=== PATIENT | female | born 1950 | race Caucasian/White ===

== ENCOUNTER 2017-04-12 09:47 | Emergency (ER) | payer OTHER ==
[2017-04-12 11:55] LABS: HEMOGLOBIN 12.1 gm/dl (12.3-15.3); RED BLOOD COUNT 4.28 M/UL (4.00-5.10); WHITE BLOOD COUNT 4.9 K/UL (4.5-11.0)
[2017-04-12 12:07] LABS: BUN/CREATININE RATIO 7 (0-10)
[2017-04-13] MEDS ORDERED: PREDNISONE 20 M20 MG PO (22:08)
[2017-04-13] MEDS ORDERED: DOXYCYCLINE HY100 MG PO (22:11)
[2017-04-13] MEDS ORDERED: LISINOPRIL10 MG PO (22:12)
[2017-04-13] MEDS ORDERED: LOPRESSOR 25 MG25 MG PO (22:13)
[2017-04-13] MEDS ORDERED: SINGULAIR10 MG PO (22:14)
[2017-04-13] MEDS ORDERED: ZOCOR 40 MG TAB40 MG PO (22:15)
[2017-04-13] MEDS ORDERED: ALPRAZOLAM0.5 MG PO ×2 (22:16→22:18)
[2017-04-13] MEDS ORDERED: TRAZODONE HCL100 MG PO (22:18)
[2017-04-13] MEDS ORDERED: OMEPRAZOLE20 MG PO (22:19)
[2017-04-13] MEDS ORDERED: PAROXETINE HCL40 MG PO (22:20)
[2017-04-13] MEDS ORDERED: ZANAFLEX4 M1 PO (22:21)
[2017-04-13] MEDS ORDERED: ROPINIROLE HCL1 MG PO (22:22)
[2017-04-13] MEDS ORDERED: ASPIR-TRIN325 MG PO (22:22)
[2017-04-13] MEDS ORDERED: SPIRIVA RESPIMAT4 GM INH (22:26)
== END 2017-04-12 15:28 | disposition home or self-care (01) ==
LOC: ER1 09:47
PROVIDERS: Specialist/Technologist Athletic Trainer
DX: J44.1 Chronic obstructive pulmonary disease with (acute) exacerbation (principal); E87.6 Hypokalemia; E87.1 Hypo-osmolality and hyponatremia; N28.1 Cyst of kidney, acquired; K57.90 Diverticulosis of intestine, part unspecified, without perforation or abscess without bleeding; F17.210 Nicotine dependence, cigarettes, uncomplicated; Z90.49 Acquired absence of other specified parts of digestive tract
CPT/HCPCS: 36415; 36600; 71250; 80053; 82803; 83605; 83690; 85025; 94640; 94664; 96361; 96374; 96375; 99284; C9113; J2930; Q9962

== ENCOUNTER 2017-04-13 16:52 | Inpatient (IN) | payer OTHER ==
[~2017-04-13] VITALS: Ht 172.7 cm; Wt 70.3 kg
[2017-04-13 17:40] LABS: HEMOGLOBIN 12.5 gm/dl (12.3-15.3); RED BLOOD COUNT 4.36 M/UL (4.00-5.10)
[2017-04-13 17:41] LABS: WHITE BLOOD COUNT 14.6 K/UL (4.5-11.0)
[2017-04-13 18:05] LABS: BUN/CREATININE RATIO 15 (0-10)
[2017-04-13] MEDS ORDERED: PREDNISONE 20 M20 MG PO (22:08)
[2017-04-13] MEDS ORDERED: DOXYCYCLINE HY100 MG PO (22:11)
[2017-04-13] MEDS ORDERED: LISINOPRIL10 MG PO (22:12)
[2017-04-13] MEDS ORDERED: LOPRESSOR 25 MG25 MG PO (22:13)
[2017-04-13] MEDS ORDERED: SINGULAIR10 MG PO (22:14)
[2017-04-13] MEDS ORDERED: ZOCOR 40 MG TAB40 MG PO (22:15)
[2017-04-13] MEDS ORDERED: ALPRAZOLAM0.5 MG PO ×2 (22:16→22:18)
[2017-04-13] MEDS ORDERED: TRAZODONE HCL100 MG PO (22:18)
[2017-04-13] MEDS ORDERED: OMEPRAZOLE20 MG PO (22:19)
[2017-04-13] MEDS ORDERED: PAROXETINE HCL40 MG PO (22:20)
[2017-04-13] MEDS ORDERED: ZANAFLEX4 M1 PO (22:21)
[2017-04-13] MEDS ORDERED: ROPINIROLE HCL1 MG PO (22:22)
[2017-04-13] MEDS ORDERED: ASPIR-TRIN325 MG PO (22:22)
[2017-04-13] MEDS ORDERED: SPIRIVA RESPIMAT4 GM INH (22:26)
[2017-04-14 01:20] LABS: HEMOGLOBIN 11.3 gm/dl (12.3-15.3); RED BLOOD COUNT 3.99 M/UL (4.00-5.10); WHITE BLOOD COUNT 11.9 K/UL (4.5-11.0)
[2017-04-14 01:40] LABS: BUN/CREATININE RATIO 16 (0-10)
[2017-04-15 03:30] LABS: HEMOGLOBIN 11.2 gm/dl (12.3-15.3); RED BLOOD COUNT 3.94 M/UL (4.00-5.10)
[2017-04-15 03:33] LABS: WHITE BLOOD COUNT 17.4 K/UL (4.5-11.0)
[2017-04-15 03:52] LABS: BUN/CREATININE RATIO 16 (0-10)
[2017-04-17 03:57] LABS: HEMOGLOBIN 11.3 gm/dl (12.3-15.3); RED BLOOD COUNT 4.06 M/UL (4.00-5.10); WHITE BLOOD COUNT 13.3 K/UL (4.5-11.0)
[2017-04-17 04:14] LABS: BUN/CREATININE RATIO 24 (0-10)
[2017-04-17] MEDS ORDERED: NORVASC 5 MG TAB5 MG PO (14:00)
[2017-04-17] MEDS ORDERED: CEFDINIR300 MG PO (14:02)
[2017-04-17] MEDS ORDERED: HUMIBID LA TAB600 MG PO (14:04)
[2017-04-17] MEDS ORDERED: HABITROL 14 MG P1 EA TD (14:08)
== END 2017-04-17 17:15 | disposition home or self-care (01) | DRG 189 ==
LOC: ER1 16:52 → ZEROF 18:45 → PROG CARE 21:30
PROVIDERS: Emergency Medicine; Internal Medicine; ADMIT Internal Medicine
PROC: 5A09357 Assistance with Respiratory Ventilation, Less than 24 Consecutive Hours, Continuous Positive Airway Pressure (ICD-10-PCS; principal; 2017-04-13)
PROC: 5A09457 Assistance with Respiratory Ventilation, 24-96 Consecutive Hours, Continuous Positive Airway Pressure (ICD-10-PCS; 2017-04-15)
DX: J96.22 Acute and chronic respiratory failure with hypercapnia (principal); J44.1 Chronic obstructive pulmonary disease with (acute) exacerbation; E87.1 Hypo-osmolality and hyponatremia; J96.21 Acute and chronic respiratory failure with hypoxia; E87.6 Hypokalemia; I10 Essential (primary) hypertension; E78.5 Hyperlipidemia, unspecified; K21.9 Gastro-esophageal reflux disease without esophagitis; M19.90 Unspecified osteoarthritis, unspecified site; G89.4 Chronic pain syndrome; M54.5 Low back pain; M25.562 Pain in left knee; M25.561 Pain in right knee; F17.210 Nicotine dependence, cigarettes, uncomplicated; F32.9 Major depressive disorder, single episode, unspecified; F41.9 Anxiety disorder, unspecified; Z79.82 Long term (current) use of aspirin; Z79.52 Long term (current) use of systemic steroids; Z79.899 Other long term (current) drug therapy; Z88.6 Allergy status to analgesic agent; Z91.041 Radiographic dye allergy status; Z91.040 Latex allergy status; Z91.013 Allergy to seafood; Z90.710 Acquired absence of both cervix and uterus; Z90.49 Acquired absence of other specified parts of digestive tract; Z98.1 Arthrodesis status; Z98.890 Other specified postprocedural states; Z82.49 Family history of ischemic heart disease and other diseases of the circulatory system
CPT/HCPCS: ECHO; 36415; 36600; 71010; 80048; 80053; 82550; 82553; 82570; 82803; 83735; 83874; 83930; 83935; 84100; 84132; 84300; 84484; 85025; 85027; 87070; 87205; 93005; 93306; 94640; 94660; 96365; 96375; 99291; J0696; J1100; J1650; J2270; J2405; J2920; J2930; J7030; J7050

== ENCOUNTER → 2017-04-23 | Outpatient (CLI) | payer OTHER ==
[~2017-04-23] MED LIST: ALPRAZOLAM0.5 MG PO; ASPIR-TRIN325 MG PO; CEFDINIR300 MG PO; DOXYCYCLINE HY100 MG PO; HABITROL 14 MG P1 EA TD; HUMIBID LA TAB600 MG PO; LISINOPRIL10 MG PO; LOPRESSOR 25 MG25 MG PO; NORVASC 5 MG TAB5 MG PO; OMEPRAZOLE20 MG PO; PAROXETINE HCL40 MG PO; PREDNISONE 20 M20 MG PO; ROPINIROLE HCL1 MG PO; SINGULAIR10 MG PO; SPIRIVA RESPIMAT4 GM INH; TRAZODONE HCL100 MG PO; ZANAFLEX4 M1 PO; ZOCOR 40 MG TAB40 MG PO
== END ==
LOC: HEART 5 12:18
DX: J44.9 Chronic obstructive pulmonary disease, unspecified (principal)
CPT/HCPCS: 94060; 94729

== ENCOUNTER → 2017-04-23 | Outpatient (CLI) | payer OTHER | LOC: RT 13:20 | DX: R09.02 Hypoxemia (principal) | CPT/HCPCS: 36600; 82803 ==